=== PATIENT | male | born 1940 | race Caucasian/White ===

== ENCOUNTER → 2018-08-20 | Day surgery (SDC) | payer OTHER ==
[2018-08-19 14:30] VITALS: BMI 26.9
[~2018-08-20] MED LIST: MIDAZOLAM HCL 2 MG/2 ML SINGLE DOSE VIAL ONE
[2018-08-20 10:42] VITALS: TEMP 97.8
[2018-08-20 10:59] VITALS: PULSE 57
[2018-08-20 11:50] VITALS: BP 118/87
--- NOTE | 2018-08-21 09:30 | PATH ---
Surgical Pathology Report Patient Name: FERNANDA PA [facility]. Rec. #: [id number] /Age/Gender: 1940 (Age: 77) / M Account: [id number] Location: U-ENDOSCOPY Taken: 08/20/2018 Received: 08/20/2018 Reported: 08/21/2018 Physicians: Christina Patel M.D. Specimen(s) Received A: 2ND PORTION DUODENUM AND DUODENAL BULB B: ANTRUM C: GE JUNCTION D: CECAL POLYP E: ASCENDING COLON POLYP Clinical History Reflux, colon polyp surveillance Postoperative diagnosis: Hiatal hernia, GERD, Schatzki's ring, colon polyp Final Diagnosis A. DUODENUM, SECOND PORTION AND BULB, BIOPSY: DUODENAL MUCOSA WITH NO PATHOLOGIC CHANGES. NO HISTOLOGIC EVIDENCE OF GLUTEN SENSITIVE ENTEROPATHY (CELIAC SPRUE) IDENTIFIED. B. STOMACH, ANTRUM, BIOPSY: GASTRIC ANTRAL MUCOSA WITH FOCAL MILD CHRONIC GASTRITIS. IMMUNOSTAIN FOR H. PYLORI IS NEGATIVE. C. ESOPHAGUS, GE JUNCTION AND SCHATZKI'S RING, BIOPSY: SQUAMOUS MUCOSA WITH PAPILLOMATOSIS AND SCATTERED INTRAEPITHELIAL EOSINOPHILS CONSISTENT WITH REFLUX ESOPHAGITIS. NO INTESTINAL METAPLASIA IDENTIFIED (NO SOTO'S IDENTIFIED). D. COLON, CECUM, BIOPSY: TUBULAR ADENOMA. E. COLON, ASCENDING, BIOPSY: TUBULAR ADENOMA. Electronically Signed Israel Saldaña M.D. Gross Description A. Received in formalin, labeled "biopsy second portion of duodenum and duodenal bulb" are 3 ivy, irregular portions of soft tissue ranging from 0.5-0.6 cm. in greatest dimension. The specimens are submitted in toto in one cassette. B. Received in formalin, labeled "biopsy antrum" are 3 ivy, irregular portions of soft tissue ranging from 0.1-0.3 cm. in greatest dimension. The specimens are submitted in toto in one cassette. C. Received in formalin, labeled "biopsy GE junction and Schatzki's ring" are 6 ivy, irregular portions of soft tissue ranging from 0.2-0.6 cm. in greatest dimension. The specimens are submitted in toto in one cassette. D. Received in formalin, labeled "biopsy cecal polyp" are 2 ivy, irregular portions of soft tissue measuring 0.2 and 0.3 cm. in greatest dimension. The specimens are submitted in toto in one cassette. E. Received in formalin, labeled "biopsy ascending colon polyp" is a ivy, irregular portion of soft tissue measuring 0.5 cm. in greatest dimension. The specimen is submitted in toto in one cassette. 08/20/2018 [facility]08/20/2018
== END | disposition home or self-care (01) ==
LOC: JASU-ENDO 08:26
PROVIDERS: ATTEND Internal Medicine Gastroenterology
PROC: 0DBH8ZX Excision of Cecum, Via Natural or Artificial Opening Endoscopic, Diagnostic (ICD-10-PCS; 2018-08-20)
PROC: 0DB48ZX Excision of Esophagogastric Junction, Via Natural or Artificial Opening Endoscopic, Diagnostic (ICD-10-PCS; 2018-08-20)
PROC: 0DB68ZX Excision of Stomach, Via Natural or Artificial Opening Endoscopic, Diagnostic (ICD-10-PCS; 2018-08-20)
PROC: 0DB38ZX Excision of Lower Esophagus, Via Natural or Artificial Opening Endoscopic, Diagnostic (ICD-10-PCS; 2018-08-20)
PROC: 0DBK8ZX Excision of Ascending Colon, Via Natural or Artificial Opening Endoscopic, Diagnostic (ICD-10-PCS; principal; 2018-08-20 09:30)
DX: Z12.11 Encounter for screening for malignant neoplasm of colon (principal); Z86.010 Personal history of colon polyps; D12.2 Benign neoplasm of ascending colon; D12.0 Benign neoplasm of cecum; K64.8 Other hemorrhoids; K57.30 Diverticulosis of large intestine without perforation or abscess without bleeding; K21.9 Gastro-esophageal reflux disease without esophagitis; K44.9 Diaphragmatic hernia without obstruction or gangrene; K22.2 Esophageal obstruction
CPT/HCPCS: 88305-TC; 88342-TC

== ENCOUNTER 2023-11-20 04:41 | Day surgery (SDC) | payer OTHER ==
[2023-11-11 12:13] VITALS: BMI 25.5
[2023-11-20 10:44] VITALS: TEMP 98.7
[2023-11-20 10:57] VITALS: RESP 18
[2023-11-20 11:15] VITALS: PULSE 46
[2023-11-20 12:22] VITALS: BP 166/55
== END 2023-11-20 12:00 | disposition home or self-care (01) ==
LOC: JASU-ENDO 04:41
PROVIDERS: ATTEND Internal Medicine Gastroenterology
PROC: 0DB98ZX Excision of Duodenum, Via Natural or Artificial Opening Endoscopic, Diagnostic (ICD-10-PCS; 2023-11-20)
PROC: 0DB68ZX Excision of Stomach, Via Natural or Artificial Opening Endoscopic, Diagnostic (ICD-10-PCS; 2023-11-20)
PROC: 0DB48ZX Excision of Esophagogastric Junction, Via Natural or Artificial Opening Endoscopic, Diagnostic (ICD-10-PCS; 2023-11-20)
PROC: 0DBH8ZX Excision of Cecum, Via Natural or Artificial Opening Endoscopic, Diagnostic (ICD-10-PCS; principal; 2023-11-20 10:00)
DX: Z12.11 Encounter for screening for malignant neoplasm of colon (principal); D12.0 Benign neoplasm of cecum; K64.8 Other hemorrhoids; K57.30 Diverticulosis of large intestine without perforation or abscess without bleeding; K21.00 Gastro-esophageal reflux disease with esophagitis, without bleeding; K22.2 Esophageal obstruction; Z86.010 Personal history of colon polyps
CPT/HCPCS: 88305-TC; 88342-TC

== ENCOUNTER 2024-07-20 05:38 | Day surgery (SDC) | payer OTHER ==
[2024-07-17 11:30] VITALS: BMI 25.7
[2024-07-20 08:38] LABS: INR 1.03 (0.83-1.09); PROTHROMBIN TIME (PATIENT) 11.3 SEC (9.7-13.0)
[2024-07-20 08:39] LABS: BASO % 0.5 % (0-2.0); EOS % 6.1 % (0-4.5); HEMATOCRIT 36.8 % (35.4-49); HEMOGLOBIN 12.3 GM/dL (11.7-16.9); LYMPH % 20.8 % (8-40); MCH 31.4 pg (25.7-33.7); MCHC 33.5 g/dl (32.0-35.9); MEAN CELL VOLUME 93.7 fl (80-96); MEAN PLT VOLUME 10.4 fl (7.5-11.1); MONO % 8.5 % (3.8-10.2); NEUT % 64.1 % (42.8-82.8); RBC 3.93 M/mm3 (4.00-5.60); RDW 13.8 % (11.9-15.9); WHITE BLOOD COUNT 6.8 K/mm3 (4.0-10.0)
[2024-07-20 09:54] LABS: PLATELET ESTIMATE SIGNIFICANT DECREASE
[2024-07-20 09:55] LABS: PLATELET COUNT 32 10^3/uL (134-434)
[2024-07-20] MEDS ORDERED: FENTANYL CITRATE/PF 50 MCG/ML VIAL ONE (10:48)
[2024-07-20] MEDS ORDERED: MIDAZOLAM HCL 2 MG/2 ML SINGLE DOSE VIAL ONE (10:48)
[2024-07-20] MEDS: FENTANYL CITRATE/PF 50 MCG/ML VIAL IVPUSH ONE (11:20)
[2024-07-20] MEDS: MIDAZOLAM HCL 2 MG/2 ML SINGLE DOSE VIAL IVPUSH ONE (11:20)
[2024-07-20 12:31] VITALS: RESP 20
[2024-07-20 12:35] VITALS: TEMP 97.9
[2024-07-20 12:37] VITALS: BP 122/63; PULSE 66
== END 2024-07-20 12:30 | disposition home or self-care (01) ==
LOC: JRADIR 05:38
PROVIDERS: ATTEND Internal Medicine Hematology & Oncology
PROC: 07DR3ZX Extraction of Iliac Bone Marrow, Percutaneous Approach, Diagnostic (ICD-10-PCS; principal; 2024-07-20)
DX: D69.6 Thrombocytopenia, unspecified (principal)
CPT/HCPCS: 20225; 36415; 38221; 77012-TC; 85025; 85610; 88300-TC

== ENCOUNTER 2024-08-11 21:07 | Inpatient (IN) | payer OTHER ==
[2024-08-11 21:42] LABS: HEMATOCRIT 37.9 % (40.1-51.0); HEMOGLOBIN 12.6 g/dL (13.7-17.5); MCHC 33.2 g/dl (32.3-36.5); MEAN CELL VOLUME 95.9 fl (79.0-92.2)
[2024-08-11] MEDS ORDERED: DEXAMETHASONE SOD PHOSPHATE 10 MG/1 ML VIAL ONE (21:48)
[2024-08-11] MEDS: DEXAMETHASONE SOD PHOSPHATE 20 MG/5 ML VIAL IVPB ONE (21:53)
[2024-08-11 21:54] LABS: PLATELET COUNT # 7 x10^3/uL (163-337)
[2024-08-11 22:18] LABS: INR 0.85 (0.83-1.09); PROTHROMBIN TIME (PATIENT) 9.7 SEC (9.7-13.0)
[2024-08-11 22:21] LABS: ACTIVATED PTT 28.7 SECONDS (25.2-36.5)
[2024-08-11 22:30] LABS: ALBUMIN 3.9 g/dl (3.4-5.0); BILIRUBIN,TOTAL 0.4 mg/dl (0.2-1); CALCIUM 9.2 mg/dl (8.5-10.1); CREATININE 1.9 mg/dl (0.6-1.3); MAGNESIUM 2.2 mg/dL (1.8-2.4); PHOSPHOROUS 3.6 (2.5-4.9); POTASSIUM 4.1 mmol/L (3.5-5.1); TOT PROT 6.1 g/dl (6.4-8.2)
[2024-08-12] MEDS ORDERED: ACETAMINOPHEN 325 MG TABLET (FP) PO PRN ×2 (01:31→07:21)
[2024-08-12] MEDS ORDERED: DOCUSATE SODIUM 100 MG CAPSULE (FP) PO PRN (01:31)
[2024-08-12 03:58] VITALS: BMI 25.8
[2024-08-12] MEDS ORDERED: diphenhydrAMINE HCL 50 MG CAPSULE PO PRN (07:19)
[2024-08-12] MEDS: DEXTROSE 5%-NORMAL SALINE 1,000 ML IV SCH (08:01)
[2024-08-12 08:25] LABS: CREATININE 1.6 mg/dl (0.6-1.3); POTASSIUM 4.8 mmol/L (3.5-5.1)
[2024-08-12 08:35] LABS: ABSOLUTE IMMATURE GRANULOCYTES 0.22 x10^3/uL (0.0-0.031); BASOPHILS # 0.01 x10^3/uL (0.01-0.08); EOSINOPHIL % 0.1 % (0.8-7.0); EOSINOPHILS # 0.01 x10^3/uL (0.04-0.54); HEMATOCRIT 35.2 % (40.1-51.0); HEMOGLOBIN 11.9 g/dL (13.7-17.5); MCHC 33.8 g/dl (32.3-36.5); MEAN CELL VOLUME 95.4 fl (79.0-92.2); MEAN PLT VOLUME 13.1 fl (9.4-12.4); MONOCYTE # 0.11 x10^3/uL (0.30-0.82); MONOCYTE % 1.2 % (5.3-12.2); PLATELET COUNT # 12 x10^3/uL (163-337)
[2024-08-12] MEDS: amLODIPine BESYLATE 5 MG TABLET (FP) PO SCH (09:22)
[2024-08-12] MEDS: diphenhydrAMINE HCL 25 MG CAPSULE (FP) PO SCH (09:22)
[2024-08-12] MEDS: ACETAMINOPHEN 325 MG TABLET (FP) PO SCH (09:22)
[2024-08-12] MEDS: CHOLECALCIFEROL (VIT D3) 1,000 UNIT (25 MCG) TABLET PO SCH (09:22)
[2024-08-12] MEDS: FAMOTIDINE 20 MG TABLET PO SCH (09:23)
[2024-08-12] MEDS: IMMUN GLOB G(IGG)/PRO/IGA 0-50 400 ML IVPB SCH (10:00)
[2024-08-12] MEDS: ATORVASTATIN CA 10 MG TABLET (FP) PO SCH (21:55)
[2024-08-13 07:42] LABS: HEMATOCRIT 36.7 % (40.1-51.0); HEMOGLOBIN 12.2 g/dL (13.7-17.5); MCHC 33.2 g/dl (32.3-36.5); MEAN CELL VOLUME 96.6 fl (79.0-92.2); MEAN PLT VOLUME 12.7 fl (9.4-12.4); PLATELET COUNT # 39 x10^3/uL (163-337); RDW 13.3 % (12.6-16.6)
[2024-08-13 07:53] LABS: INR 0.93 (0.83-1.09); PROTHROMBIN TIME (PATIENT) 10.6 SEC (9.7-13.0)
[2024-08-13 07:59] LABS: ALBUMIN 3.7 g/dl (3.4-5.0); BILIRUBIN,TOTAL 0.4 mg/dl (0.2-1); CREATININE 1.4 mg/dl (0.6-1.3); POTASSIUM 3.9 mmol/L (3.5-5.1); TOT PROT 7.1 g/dl (6.4-8.2)
[2024-08-13 14:51] VITALS: BP 128/52; PULSE 51; RESP 16; TEMP 97.7
== END 2024-08-13 16:40 | disposition home or self-care (01) | DRG 813 ==
LOC: FER 21:07 → FM/S 23:28
PROVIDERS: ADMIT Internal Medicine; ATTEND Internal Medicine
DX: D69.3 Immune thrombocytopenic purpura (principal); I47.10 Supraventricular tachycardia, unspecified; K21.9 Gastro-esophageal reflux disease without esophagitis; I12.9 Hypertensive chronic kidney disease with stage 1 through stage 4 chronic kidney disease, or unspecified chronic kidney disease; N18.9 Chronic kidney disease, unspecified; E78.5 Hyperlipidemia, unspecified; R73.9 Hyperglycemia, unspecified; K44.9 Diaphragmatic hernia without obstruction or gangrene; N40.0 Benign prostatic hyperplasia without lower urinary tract symptoms; Z85.46 Personal history of malignant neoplasm of prostate
CPT/HCPCS: 36415; 80048; 80053; 83735; 84100; 85025; 85610; 85730; 86704; 86705; 86850; 86900; 86901; 93005; 99285-25; J1459

== ENCOUNTER 2024-08-14 10:30 | Day surgery (SDC) | payer OTHER ==
[2024-08-14] MEDS: ACETAMINOPHEN 325 MG TABLET (FP) PO ONE (11:53)
[2024-08-14] MEDS: diphenhydrAMINE HCL 25 MG CAPSULE (FP) PO ONE (11:53)
[2024-08-14 12:00] LABS: HEMATOCRIT 36.9 % (40.1-51.0); HEMOGLOBIN 11.7 g/dL (13.7-17.5); MCHC 31.7 g/dl (32.3-36.5); MEAN CELL VOLUME 98.4 fl (79.0-92.2); MEAN PLT VOLUME 11.4 fl (9.4-12.4); PLATELET COUNT # 66 x10^3/uL (163-337); RDW 13.3 % (12.6-16.6)
[2024-08-14] MEDS: IMMUN GLOB G(IGG)/PRO/IGA 0-50 400 ML IVPB ONE (12:27)
[2024-08-14 16:29] VITALS: BP 121/97; PULSE 63; TEMP 97
[2024-08-14 16:41] VITALS: RESP 16
== END 2024-08-14 16:41 | disposition home or self-care (01) ==
LOC: FINFUSION 10:30 → FM/S 11:10 → FINFUSION 16:41
PROVIDERS: ATTEND Internal Medicine Hematology & Oncology
PROC: 30233S1 Transfusion of Nonautologous Globulin into Peripheral Vein, Percutaneous Approach (ICD-10-PCS; principal; 2024-08-14)
DX: D69.3 Immune thrombocytopenic purpura (principal)
CPT/HCPCS: 36415; 85027; 93005; 93010; 96365; 96366; J1459

== ENCOUNTER 2024-08-15 09:55 | Day surgery (SDC) | payer OTHER ==
[2024-08-15] MEDS: ACETAMINOPHEN 325 MG TABLET (FP) PO ONE (10:40)
[2024-08-15] MEDS: diphenhydrAMINE HCL 25 MG CAPSULE (FP) PO ONE (10:40)
[2024-08-15] MEDS: IGA AVG IVPB SCH (11:12)
[2024-08-15] MEDS: GLY IVPB SCH (11:12)
[2024-08-15] MEDS: IMMUNE GLOBUL IVPB SCH (11:12)
[2024-08-15 14:04] VITALS: RESP 16
[2024-08-15 14:48] LABS: HEMATOCRIT 38.3 % (40.1-51.0); HEMOGLOBIN 12.7 g/dL (13.7-17.5); MCHC 33.2 g/dl (32.3-36.5); MEAN CELL VOLUME 96.5 fl (79.0-92.2); MEAN PLT VOLUME 10.8 fl (9.4-12.4); PLATELET COUNT # 110 x10^3/uL (163-337); RDW 13.3 % (12.6-16.6)
[2024-08-15 16:12] VITALS: BP 132/80; PULSE 102; TEMP 97.5
== END 2024-08-15 13:45 | disposition home or self-care (01) ==
LOC: FINFUSION 09:55 → FM/S 09:57 → FINFUSION 13:45
PROVIDERS: ATTEND Internal Medicine Hematology & Oncology
PROC: 30233S1 Transfusion of Nonautologous Globulin into Peripheral Vein, Percutaneous Approach (ICD-10-PCS; principal; 2024-08-15)
DX: D69.3 Immune thrombocytopenic purpura (principal)
CPT/HCPCS: 36415; 85027; 96365; 96366; J1561